=== PATIENT | female | born 1995 | race Caucasian/White ===

== ENCOUNTER 2022-06-07 18:00 | Inpatient (IN) | payer OTHER ==
[~2022-06-07 18:00] MED LIST: Acetaminophen 500 MG TAB PO PRN; Butorphanol Tartrate 1 MG/ML VIAL SLOW IVP PRN; Carboprost 250 MCG/ML AMP IM PRN; Diphenoxylate HCl/Atropine Tablet PO PRN; Docusate 100 MG CAP PO PRN; HYDROcodone/Acetaminophen 5/325 mg Tablet PO PRN; Ibuprofen 800 MG TAB PO PRN; Lidocaine 1% (PF) 30 ML VIAL SC PRN; Misoprostol 200 MCG TAB PR PRN; NS w/ Oxytocin 30 units 500 ML IV SCH; Ondansetron PF 4 MG/2 ML Vial IVP PRN; Penicillin G Potassium 5 MILL.UNITS in Sodium Chloride 0.9% 100 ML IVPB SCH; Promethazine HCl 25 MG/ML VIAL IM PRN; Zolpidem Tartrate 5 MG TAB PO PRN; hydrALAZINE 20 MG/ML VIAL SLOW IVP PRN
[2022-06-07 19:47] VITALS: BMI 29.8
[2022-06-07 20:36] LABS: Hemoglobin 12.7 g/dL (12.0-15.5); Mean Corpuscular Hemoglobin 29.9 pg (27.0-33.0); Mean Corpuscular Volume 87.8 fl (81.6-98.3); Mean Platelet Volume 12.6 fl (7.4-10.4); Platelet Count 208 10x3/uL (150-450); RBC Distribution Width 13.5 % (11.5-14.5); Red Blood Cell (RBC) Count 4.25 10x6/uL (3.90-5.03); White Blood Cell (WBC) Count 11.5 10x3/uL (3.5-10.5)
[2022-06-07 21:09] LABS: Syphilis Antibody Nonreactive (Nonreactive); Syphilis Antibody Index 0.03 S/CO (<1.00 Non-Reactive)
[2022-06-07 21:11] LABS: HBSAg Index 0.18 S/CO (0-0.99); Hep B Surf Ag Non-Reactive S/CO (NonReactive)
[2022-06-07 22:01] LABS: SARS-CoV-2 NAA Rapid Test Not Detected (NotDetected)
[2022-06-08] MEDS: Misoprostol 100 MCG TAB VAG SCH ×4 (01:59→15:52)
[2022-06-08] MEDS ORDERED: Fentanyl 2 mcg/Bup 0.1% Cadd 100 ML ONE ×2 (07:03→14:10)
[2022-06-08] MEDS ORDERED: Naloxone HCl 0.4 mg/ml Vial IVP PRN ×2 (07:30)
[2022-06-08] MEDS ORDERED: Communication Order-Pharmacy FS SCH (07:30)
[2022-06-08] MEDS ORDERED: ePHEDrine Sulfate 50 MG/10 ML VIAL SLOW IVP PRN (07:30)
[2022-06-08] MEDS ORDERED: diphenhydrAMINE 50 MG/ML VIAL IVP PRN (07:30)
[2022-06-08] MEDS ORDERED: Lactated Ringer's 500 ML IV PRN (07:30)
[2022-06-08] MEDS ORDERED: Acetaminophen 325 MG TAB PO PRN (07:30)
[2022-06-08] MEDS ORDERED: Promethazine HCl 25 MG/ML VIAL IM PRN ×2 (07:30→17:24)
[2022-06-08] MEDS ORDERED: Moisturizing Cream (Eucerin) 113 GM JAR TOP PRN (07:30)
[2022-06-08] MEDS ORDERED: Ondansetron PF 4 MG/2 ML Vial IVP PRN ×2 (07:30→17:24)
[2022-06-08] MEDS: Fentanyl 2 mcg/Bupivacaine 0.1% Cassette 100 ML EPIDURAL SCH ×2 (07:41→14:12)
[2022-06-08] MEDS: Lactated Ringer's 1,000 ML IV SCH ×2 (10:05→15:51)
[2022-06-08] MEDS: Penicillin G 2.5 MILL.units 2.5 MILL.UNITS in Premix Bag 1 BAG IVPB SCH ×3 (10:05→15:52)
[2022-06-08] MEDS ORDERED: Misoprostol 200 MCG TAB ONE (15:17)
[2022-06-08] MEDS ORDERED: Zolpidem Tartrate 5 MG TAB PO PRN (17:24)
[2022-06-08] MEDS ORDERED: Varicella virus, LIVE 0.5 ML VIAL SC ONE (17:24)
[2022-06-08] MEDS ORDERED: diphenhydrAMINE 25 MG CAP PO PRN (17:24)
[2022-06-08] MEDS ORDERED: Milk Of Magnesia 30 ML UDCUP PO PRN (17:24)
[2022-06-08] MEDS ORDERED: Measles/Mumps/Rubella 10 MCG/0.5 ML VIAL SC ONE (17:24)
[2022-06-08] MEDS ORDERED: Boostrix 0.5 ML (Tdap) VIAL (>/=7 yrs of age) IM ONE (17:24)
[2022-06-08] MEDS ORDERED: NS w/ Oxytocin 30 units 500 ML IV SCH (17:24)
[2022-06-08] MEDS ORDERED: Benzocaine-Menthol 82.5 ML CAN TOP PRN (17:24)
[2022-06-08] MEDS ORDERED: Bisacodyl 10 MG SUPP PR PRN (17:24)
[2022-06-08] MEDS ORDERED: Preparation H Ointment 28 GM TUBE PR PRN (17:24)
[2022-06-08] MEDS ORDERED: HYDROcodone/Acetaminophen 5/325 mg Tablet PO PRN (17:24)
[2022-06-08] MEDS ORDERED: Lanolin Ointment 7 GM TUBE TOP PRN (17:24)
[2022-06-08] MEDS ORDERED: hydrALAZINE 20 MG/ML VIAL SLOW IVP PRN (17:24)
[2022-06-08] MEDS: Ibuprofen 800 MG TAB PO SCH (21:11)
[2022-06-08] MEDS: Docusate 100 MG CAP PO SCH (21:11)
[2022-06-09] MEDS: HYDROcodone/Acetaminophen 5/325 mg Tablet PO PRN ×2 (01:37→09:23)
[2022-06-09] MEDS: Ibuprofen 800 MG TAB PO SCH ×2 (05:06→13:44)
[2022-06-09 05:25] LABS: Hemoglobin 10.6 g/dL (12.0-15.5); Mean Corpuscular HGB CONC 33.8 g/dL (32.0-36.0); Mean Corpuscular Hemoglobin 29.8 pg (27.0-33.0); Mean Corpuscular Volume 88.2 fl (81.6-98.3); Platelet Count 135 10x3/uL (150-450); RBC Distribution Width 13.2 % (11.5-14.5); Red Blood Cell (RBC) Count 3.56 10x6/uL (3.90-5.03); White Blood Cell (WBC) Count 13.9 10x3/uL (3.5-10.5)
[2022-06-09 07:51] VITALS: BP 121/72; TEMP 98.2
[2022-06-09] MEDS: Docusate 100 MG CAP PO SCH (07:57)
[2022-06-09] MEDS: Ferrous Sulfate 325 MG TAB PO SCH ×2 (07:57→15:48)
[2022-06-09] MEDS ORDERED: Prenatal Vitamin 1 TAB PO SCH (09:00)
== END 2022-06-09 17:00 | disposition home or self-care (01) | DRG 807 ==
LOC: CSHLD 18:52 → CSHPP 06-08 17:37
PROVIDERS: ADMIT Obstetrics & Gynecology; ATTEND Obstetrics & Gynecology
PROC: 10E0XZZ Delivery of Products of Conception, External Approach (ICD-10-PCS; principal; 2022-06-08)
DX: O13.4 Gestational [pregnancy-induced] hypertension without significant proteinuria, complicating childbirth (principal); Z37.0 Single live birth; Z20.822 Contact with and (suspected) exposure to COVID-19; Z3A.37 37 weeks gestation of pregnancy; O70.0 First degree perineal laceration during delivery
CPT/HCPCS: 51702; 85027; 86780; 86850; 86900; 86901; 87340; J2405; J2550; J2590; U0002